=== PATIENT | female | born 1940 | race Caucasian/White ===

== ENCOUNTER 2016-08-01 03:00 | Inpatient (IN) | payer OTHER, MEDICARE ==
[~2016-08-01] VITALS: Ht 162.6 cm; Wt 93.0 kg
[2016-08-01] MEDS ORDERED: LEVOTHYROXINE25 MCG PO (06:58)
[2016-08-01] MEDS ORDERED: LISINOPRIL-HCT1 EACH PO (06:59)
[2016-08-01] MEDS ORDERED: VITAMIN B122500 MC2 PO (07:00)
[2016-08-01] MEDS ORDERED: VITAMIN D31000 UNI1 PO (07:01)
[2016-08-01] MEDS ORDERED: FERROUS SULFAT325 M3 PO (07:02)
[2016-08-01] MEDS ORDERED: TRAMADOL HCL50 M1 PO (07:03)
--- NOTE | 2016-08-01 09:37 | Operative Report ---
Operative/Inv Procedure Report Surgery Date: 08/01/16 Name of Procedure: Left total knee arthroplasty Pre-Operative Diagnosis: Osteoarthritis primarily left knee Post-Operative Diagnosis: Osteoarthritis left knee, primarY Estimated Blood Loss: less than 50ml Surgeon/Design Sales Consultant: TANESHA MEDINA,FABIANO Wilkins Anesthesia: block (SPINAL) IV Fluids: See anesthesia record Implants: Striker triathlon posterior stabilize knee size 5 femur, size 5 tibia, 13 mm polyethylene insert, 29 patella Drains: None Specimens: Bone to pathology Tourniquet: 53 minutes Complications: None Condition: Stable Operative Indication: Patient is a 76-year-old female who was failed conservative treatment for her primary osteoarthritis of the left knee. She wished to proceed with a total knee arthroplasty. The risks and benefits the procedure were explained the patient detail the office. Skilled set of hands was necessary provided by physician middle [employer] assistant principal Fausto Wilkins weighted with retraction positioning assemblY of components throughout the case. Operative/Procedure Note Note: Once informed consent was obtained and the correct limb was identified the patient was brought to operating room placed on table supine position. After administration of spinal anesthesia patient placed in supine position and a thigh tourniquet was placed. The left lower extremity is prepped and draped in usual sterile fashion. To begin the procedure standard midline incision was made for total knee arthroscopy. Sharp dissection was carried down through the skin and subcutaneous tissue and fat. A medial parapatellar arthrotomy was performed and the patella was everted. Fat pad is removed from the patellar tendon. Patellar thickness was measured and a planned resection of 9 mm was taken off the patella. Patella was sized to be a size 29 symmetric patella and the jig for the 29 patella was placed onto the knee And the lug holes were drilled. The patella was retracted laterally and the knee was placed in flexion. Z retractors were placed to protect the medial and lateral collateral ligaments and the intramedullary canal of the the femur was opened with the step drill. The distal femoral cutting guide was placed into the intramedullary canal set for a 6 valgus cut and 10 mm resection. The distal femur was cut without any, patient. The femoral sizing guide was placed onto the distal femur and the femur sized to be size 5 femur. A size 5 4-in-1 cutting block was placed and distal femur and anterior posterior and chamfer cuts were made without complication. Next the size 5 femoral template for the box cut was placed and pinned in place and the box cut was made for posterior stabilized knee. At this point the menisci removed medially and laterally sharply with a # 10 blade. Curved osteotome was used to remove any posterior osteophytes. At this point attention was then turned to the tibia. The step drill was used to open each medullary canal of the tibia. The tibial cutting guide was placed and the intramedullary canal. A plan resection of 4 mm of bone off of the medial side of the tibia was performed and the bone was passed off as specimen. Tibia was sized to be a size 5 tibia. Trial reduction was done with a size 5 tibia size 5 femur a 29 patellar button and a 9 mm polyethylene insert. There was laxity with varus and valgus stress and we jumped up to a size 13 mm polyethylene insert. With the 13 mm polyethylene insert and the knee had full extension and 110 of flexion. It was stable to varus and valgus stress testing at 0 and 60. The patellar tracked very nicely. The knee was taken through a range of motion and tibial component rotation was marked. Once removed and the tibia tibial tray was pinned in place. Keel cut was made. All entrance removed at this point the knee was pulse lavaged. The knee was prepared for cementing. Cement was mixed on the back table and the components were cemented in order with the tibia component cemented first followed by the femoral component and then follow 5 the patellar button. All excess cement was removed curettes. A 13 mm trial insert was placed in the knee was placed in extension while cement hardened. Once the cement hardened the knee was again taken through a range of motion found be stable. A 13 mm polyethylene insert was opened and locked into the tibial tray without, patient. The tourniquet was released and any bleeding was stopped with Bovie.. The arthrotomy is closed #1 Vicryl interrupted sutures. The subcutaneous tissues closed #1 Vicryl and 2-0 Vicryl interrupted sutures. Skin was closed guzman and sterile dressings applied and the patient was awakened taken recovery in stable condition. This concludes an operative report on Chelsie Jimenez
--- NOTE | 2016-08-01 11:30 | NUR ---
1130: PT ADMITTED FROM PACU S/P LT TKR, PT AXO, DENIES PAIN, LLE DSG CDI, PT ON RA, JEAN-BAPTISTE CATH PATENT DRAINING YELLOW URINE, PT ORIENTED TO ROOM, CALL LIGHT AND PLAN OF CARE
[2016-08-01 12:00] VITALS: BP 118/70
--- NOTE | 2016-08-01 12:32 | PN- Orthopedic ---
Subjective Subjective: The patient was seen this afternoon postoperatively. She denies any current pain and reports that her lower extremity still filled all numb from anesthesia. Patient with complaints of current time and denies any chest pain or difficulty breathing. Objective Vital Signs and I&Os Afebrile with stable vital signs Physical Exam: Gen.: Alert and obvious distress Skin: Warm and dry Cardiac: S1-S2 regular Pulmonary: Bilateral breath sounds equal with good exchange Extremities: Bilateral lower extremities are warm without calf tenderness or significant edema. Gross motor and sensory are intact. Left lower extremity surgical dressing is clean, dry, and intact without signs of infection. There is an On-Q pain pump [address] Assessment/Plan Assessment/Plan Assessment: 76-year-old female status post left total knee arthroplasty. Postoperatively the patient is progressing as expected and her pain is under adequate control. Plan: Out of bed namely with physical therapy patient is weightbearing as tolerated Continue current pain regiment Strict I's and O's Keep Ramirez catheter in continue IV fluids until the morning First dose of Coumadin tonight Follow-up morning labs GI and DVT prophylaxis Advance diet as tolerated Resume all medications 2 doses of prophylactic postoperative antibiotics Core Measures/Miscellaneous Ramirez Catheter Date In: 08/01/16 Still Needed? Yes Venous Thromboembolism VTE Risk Factors: Age > 40, Surgery VTE Contraindications: No Contraindications VTE Prophylaxis Ordered Inpt: Mech & Pharm VTE Diagnosis: No Beta Love Is Beta Love a Home Med? No Antibiotics Is Patient on Antibiotics? Yes If Yes: prophylaxis
[2016-08-01 14:39] VITALS: BP 136/72
[2016-08-01 21:59] VITALS: BP 130/70
[2016-08-02 07:03] VITALS: BP 136/72
--- NOTE | 2016-08-02 07:15 | PN- Orthopedic ---
Subjective Subjective: No acute events overnight. Patient admits to pain at the operative site today. She is not tolerating narcotics well due to nausea, but Zofran helps. She is tolerating regular diet. Ramirez catheter remains in place. She was able to ambulate with PT yesterday and is looking forward to her PT session today. Otherwise denies headache, dizziness, chest pain, shortness of breath. Objective Vital Signs and I&Os Vital Signs Date Time Temp Pulse Resp B/P Pulse O2 O2 Flow FiO2 Ox Delivery Rate 08/02 0703 98.3 82 18 136/72 92 Room Air 08/01 2159 98.0 88 20 130/70 92 Room Air 08/01 1447 89 136/72 08/01 1439 97.5 89 20 136/72 93 08/01 1200 96.0 74 18 118/70 92 Room Air Intake & Output 08/02 0800 08/02 0000 08/01 1600 08/01 0800 08/01 0000 07/31 1600 Intake Total 600 1090 625 Output Total 850 1450 600 Balance -250 -360 25 Intake, IV 600 850 225 Intake, Oral 240 400 Output, Urine 850 1450 600 Patient 205 lb Weight Physical Exam: Gen.: Patient is awake and alert. No acute distress. Cardiac: Regular rate and rhythm Pulmonary: Lungs are clear to auscultation bilaterally. Dry cough is elicited with deep inspiration. Abdomen: Soft, nondistended, nontender. Bowel sounds were heard. Extremities: The left lower extremity dressing is clean, dry, and intact. It was a bit tight at the superior aspects, so was loosened. Foot is warm. Patient is able to move her toes. Strength of plantar flexion is 4 out of 5, but strength of dorsiflexion is 2 out of 5. Dorsiflexion seems to be limited by pain only. Lower extremity sensation is intact. Calf tenderness as expected on the left side, but there is no Tenderness on the right side. Assessment/Plan Assessment/Plan Patient is a 76-year-old female with a past medical history significant for hypertension and hypothyroidism, who is now postoperative day #1 status post left total knee arthroplasty. Plan: -Continue PT for mobilization. Weight-bear as tolerated. -Okay to increase tramadol dose to 100 mg if needed for better pain control. -Increase Colace 2 twice a day [id number]. -We will provide an incentive spirometer. This was discussed with the patient. -Coumadin for DVT prophylaxis. Titrate to goal INR of 2-3. -DC Ramirez this morning. Hep-Lock IV fluids. Continue regular diet. -Plan for dressing change tomorrow. On-Q pain catheter will be removed at that time. -Anticipate discharge plan to be home PT on postop day #2 or 3. -Patient was also seen by Dr. Ayala this morning. Core Measures/Miscellaneous Ramirez Catheter Date In: 08/01/16 Still Needed? No Venous Thromboembolism VTE Risk Factors: Age > 40, Surgery VTE Contraindications: No Contraindications VTE Prophylaxis Ordered Inpt: Mech & Pharm VTE Diagnosis: No Beta Love Is Beta Love a Home Med? No Antibiotics Is Patient on Antibiotics? No
[2016-08-02 08:07] LABS: ABSOLUTE BASOPHIL COUNT 0 /CUMM (0.0-0.2); ABSOLUTE EOSINOPHIL COUNT 0 /CUMM (0.0-0.7); ABSOLUTE GRANULOCYTE CT 14.6 /CUMM (1.4-6.5); ABSOLUTE LYMPH COUNT 1.2 /CUMM (1.2-3.4); ABSOLUTE MONOCYTE COUNT 1.2 /CUMM (0.10-0.60); BASOPHIL % 0 % (0.0-2.0); EOSINOPHIL % 0.1 % (0-5); HEMATOCRIT 34.4 % (37-47); MEAN CORPUSCULAR HGB 28.7 PG (27.0-31.0); MEAN CORPUSCULAR HGB CONC 34.1 G/DL (33.0-37.0); MEAN PLATELET VOLUME 10.3 FL (7.4-10.4); PLATELET COUNT 216 /CUMM (130-400); RBC DISTRIBUTION WIDTH 15.1 % (11.5-14.5); WHITE BLOOD CELL COUNT 17.1 /CUMM (4.8-10.8)
[2016-08-02 08:16] LABS: PT 11.6 SEC (9.4-12.5)
[2016-08-02 09:52] LABS: GRANULOCYTE % 85.3 % (42.2-75.2)
--- NOTE | 2016-08-02 12:30 | NUR ---
PT IN CHAIR C/O PAIN, PT REFUSE DURAKOLD, PT STATES " IT DOESN'T WORK " PT IN CHAIR WITH FEET RESTING ON FLOOR. PT STATES SHE IS UNABLE TO TOLERATE LEGS ELEVATED IN CHAIR DUE TO PAIN. PT GIVEN DILAUDID PER REQUEST, PT REFUSE TO TAKE MORPHINE FOR PAIN, SEE MAR
[2016-08-02 15:54] VITALS: BP 120/70
[2016-08-02 18:23] VITALS: BP 122/80
[2016-08-02 22:48] VITALS: BP 118/60
[2016-08-03 07:30] VITALS: BP 130/80
[2016-08-03 07:57] LABS: ABSOLUTE BASOPHIL COUNT 0.1 /CUMM (0.0-0.2); ABSOLUTE EOSINOPHIL COUNT 0.1 /CUMM (0.0-0.7); ABSOLUTE GRANULOCYTE CT 11.7 /CUMM (1.4-6.5); ABSOLUTE LYMPH COUNT 1.6 /CUMM (1.2-3.4); ABSOLUTE MONOCYTE COUNT 1.4 /CUMM (0.10-0.60); BASOPHIL % 0.4 % (0.0-2.0); EOSINOPHIL % 0.5 % (0-5); GRANULOCYTE % 78.8 % (42.2-75.2); HEMATOCRIT 37.6 % (37-47); MEAN CORPUSCULAR HGB 28.8 PG (27.0-31.0); MEAN CORPUSCULAR VOLUME 84.8 FL (81.0-99.0); MEAN PLATELET VOLUME 10.5 FL (7.4-10.4); PLATELET COUNT 228 /CUMM (130-400); RBC DISTRIBUTION WIDTH 15.2 % (11.5-14.5); RED BLOOD CELL CT 4.43 /CUMM (4.20-5.40); WHITE BLOOD CELL COUNT 14.9 /CUMM (4.8-10.8)
[2016-08-03 08:23] LABS: PT 12.8 SEC (9.4-12.5)
--- NOTE | 2016-08-03 08:38 | PN- Orthopedic ---
See Addendum Subjective Subjective: pod#2 s/p left tka poor pain control 8/[address] susannah denies cp, sob, no n+v with diet preop u/a-+uti, no urinary sx's at this time Objective Vital Signs and I&Os Vital Signs Date Time Temp Pulse Resp B/P Pulse O2 O2 Flow FiO2 Ox Delivery Rate 08/03 0730 98.1 86 18 130/80 90 Room Air 08/02 2248 97.9 86 19 118/60 93 Room Air 08/02 1823 97.8 89 19 122/80 92 Room Air 08/02 1700 Room Air Room Air 08/02 1554 97.3 86 20 120/70 95 08/02 1408 Room Air Room Air Intake & Output 08/03 1600 08/03 0800 08/03 0000 08/02 1600 08/02 0700 08/02 0000 Intake Total 500 354 268 3512 Output Total 300 503 675 5605 Balance -300 500 325 -250 -360 Intake, IV 75 600 850 Intake, Oral 500 600 240 Output, Urine 300 254 493 3666 Physical Exam: cv: rrr lungs: clear abd: +bs, soft ext: drsg changed wound c/d'i no calf tenderness bilat Assessment/Plan Assessment/Plan tka stable +uti poor pain control plan start iv cipro f/u urine sensitivities f/ am labs titrate pain meds coumadin for dvt prophylaxis will d/w attending Core Measures/Miscellaneous Ramirez Catheter Date In: 08/01/16 Venous Thromboembolism VTE Risk Factors: Age > 40, Surgery VTE Contraindications: No Contraindications VTE Prophylaxis Ordered Inpt: Mech & Pharm VTE Diagnosis: No Beta Love Is Beta Love a Home Med? No Antibiotics Is Patient on Antibiotics? No
--- NOTE | 2016-08-03 09:49 | RADIOLOGY REPORT ---
EXAMINATION: XR KNEE, LEFT CLINICAL INFORMATION: Status post left TKA COMPARISON: 06/04/2013 TECHNIQUE: 2 views of the left knee FINDINGS: There is a total left knee arthroplasty. The distal femoral component articulates appropriately with the tibial plateau and patellar components. No periprosthetic lucency or fracture. Postoperative soft tissue gas noted. Anterior skin guzman are present. Diffuse soft tissue swelling. IMPRESSION: Total left knee arthroplasty in typical positioning and alignment.
--- NOTE | 2016-08-03 14:35 | ULTRASOUND REPORT ---
EXAMINATION: US DUPLEX LOWER EXTREMITY, LEFT CLINICAL INFORMATION: Postoperative edema and swelling COMPARISON: None. TECHNIQUE: Color-flow triplex imaging with spectral analysis and compression Doppler were performed on the left lower extremity. FINDINGS: Respiratory variation, normal compression and augmented flow are noted throughout the lower extremity. The visualized common femoral vein, superficial femoral vein, profunda femoral vein, popliteal vein and mid calf peroneal and posterior tibial venous segments show no evidence of deep venous thrombosis. There is no Corral's cyst. IMPRESSION: Normal triplex scan without evidence of deep venous thrombosis involving the left lower extremity.
[2016-08-03 14:46] VITALS: BP 108/76
--- NOTE | 2016-08-03 16:11 | Patient Discharge Instructions ---
Discharge Instructions General Discharge Information You were seen/treated for: left knee primary osteoarthritis You had these procedures: left total knee arthroplasty Watch for these problems: temp>101.5, increased wound drainage/redness, increased pain Call Surgeon to remove: [place] No bath, but you may shower: Yes Other wound care: daily dry drsg to left knee Diet Continue normal diet: Yes Recommended Diet: Regular Activity Activity Limited to: Weight bear as tolerated Other activity limits: when sitting in chair, elevate left leg with ice to left knee as needed with increased pain and swelling. No pillows directly underneath knee. Acute Coronary Syndrome Inclusion Criteria At DC or during hospital stay patient has or had the following: ACS DIAGNOSIS No Discharge Core Measures Meds if any: Prescribed or Continued at Discharge Meds if any: NOT Prescribed or Continued at Discharge Congestive Heart Failure Inclusion Criteria At DC or during hospital stay patient has or had the following: CHF DIAGNOSIS No Discharge Core Measures Meds if any: Prescribed or Continued at Discharge Meds if any: NOT Prescribed or Continued at Discharge Cerebrovascular accident Inclusion Criteria At DC or during hospital stay patient has or had the following: CVA/TIA Diagnosis No Discharge Core Measures Meds if any: Prescribed or Continued at Discharge Meds if any: NOT Prescribed or Continued at Discharge Venous thromboembolism Inclusion Criteria VTE Diagnosis No VTE Type NONE VTE Confirmed by (Test) NONE Discharge Core Measures - Per Current guidelines, there needs to be overlap - treatment for the first 5 days of Warfarin therapy. - If discharged on Warfarin prior to 5 days of - overlap therapy, the patient will need to be - assessed for post discharge needs including - *Post discharge parental anticoagulation - *Warfarin and/or parental anticoagulation education - *Follow up date to check INR post discharge At least 5 days overlap therapy as Inpatient No Meds if any: Prescribed or Continued at Discharge Warfarin Yes Overlap Therapy No Note: Overlap Therapy is Warfarin and Anticoagulant Meds if any: NOT Prescribed or Continued at Discharge No Overlap Therapy d/t Warfarin therapy started
[2016-08-03] MEDS ORDERED: SENNA PLUS TAB1 EACH PO (16:14)
[2016-08-03] MEDS ORDERED: MIRALAX119 GM PO (16:14)
[2016-08-03] MEDS ORDERED: DOCUSATE SODIU100 M3 PO (16:15)
[2016-08-03] MEDS ORDERED: HYDROMORPHONE HC2 M1 PO (16:16)
[2016-08-03] MEDS ORDERED: COUMADIN5 M2 PO (16:17)
[2016-08-03] MEDS ORDERED: CIPRO500 M1 PO (16:18)
--- NOTE | 2016-08-03 16:39 | Discharge Summary ---
Visit Information Visit Dates Admission Date: 08/01/16 Discharge Date: 08/04/16 Hospital Course Course Attending Physician: TANESHA MEDINA,FABIANO Sanders Primary Care Physician: MONET ALLEN MD Hospital Course: Ms. Salmeron is 76-year-old female was taken to the operating room on 08/01/2016 for primary osteoarthritis of the left knee and underwent left total knee arthroplasty. She tolerated the procedure well and she was transferred to the floor she was out of bed postop day 1 with physical therapy. She was sitting upright in a standard chair for an extended period and after this sitting complained of increased pain to the left knee and calf. The following morning during her dressing change she stated this and complained of increased pain overnight. As a result for safety. Duplex venous ultrasound of the left lower extremity was obtained and the results were negative for deep vein thrombosis. She continued out of bed with physical therapy and her pain meds were titrated. She was also placed on Coumadin for DVT prophylaxis and INRs were checked daily. Also at the time of the placement of her Ramirez catheter for surgery the cultures of the specimen grew out Pseudomonas and she was placed on ciprofloxacin intravenously. She will continue this course of treatment for this urinary tract infection for a total of 3 days. Events of hospital stay are otherwise unremarkable she continued to physical therapy however required assistance warranting nursing home facility placement. Complications: None Allergies: Coded Allergies: Penicillins (UNKNOWN 07/31/16) amoxicillin (UNKNOWN 07/31/16) cephalexin (UNKNOWN 07/31/16) Significant Procedures: Left total knee arthroplasty Disposition Summary Disposition Principal Diagnosis: Primary osteoarthritis left knee Additional Diagnosis: Urinary tract infection Discharge Disposition: SNF Discharge Instructions General Discharge Information Code Status: Full Code Patient's Diet: Regular diet Patient's Activity: May be weightbearing as tolerated left lower extremity. When sedentary, ice and elevation to left lower extremity for comfort as needed Follow-Up Instructions/Appts: Draw twice weekly INRs and titrate Coumadin dose to maintain an INR between 2 and 3. Send results to Dr. Ayala evaluate orthopedics for Coumadin doses. Dry dressing to left knee daily Increased pain/wound drainage should be reported to Dr. Ayala at [facility]. Medications at Discharge Discharge Medications: Continue taking these medications: Levothyroxine Sodium (Levothyroxine Sodium) 25 MCG TABLET 1 Tablet ORAL DAILY Comments: PT TAKES 0.15MG DAILY Lisinopril/Hydrochlorothiazide (Lisinopril-Hctz 20-12.5 MG Tab) 20 MG-12.5 MG TABLET 1 Tablet ORAL DAILY Cyanocobalamin (Vitamin B-12) (Vitamin B12) 2,500 MCG TAB.CHEW 1 Tablet ORAL DAILY Comments: PT TAKES 1000MCG DAILY Cholecalciferol (Vitamin D3) (Vitamin D3) 1,000 UNIT CAPSULE 1 Tablet ORAL DAILY Ferrous Sulfate (Ferrous Sulfate) 325 MG (65 MG IRON) TABLET 1 Tablet ORAL DAILY Tramadol HCl (Tramadol HCl) 50 MG TABLET 1 Tablet ORAL DAILY as needed for PAIN Comments: PT HASN'T TAKEN FOR 1 WEEK Start taking the following new medications: Hydromorphone HCl (Hydromorphone HCl) 2 MG TABLET 1 Tablet ORAL EVERY 4 HOURS NEEDED as needed for PAIN SCALE 1-3 (MILD) Qty = 30 No Refills Docusate Sodium (Docusate Sodium) 100 MG CAPSULE 1 Tablet ORAL TWICE DAILY Qty = 30 No Refills Polyethylene Glycol 3350 (Miralax) 17 GRAM/DOSE POWDER 1 Packet ORAL DAILY NEEDED as needed for NO BM IN TWO DAYS Qty = 30 No Refills Sennosides/Docusate Sodium (Senna Plus Tablet) 8.6 MG-50 MG TABLET 2 Tablet ORAL AT BEDTIME NEEDED as needed for NO BM IN TWO DAYS Qty = 30 No Refills Warfarin Sodium (Coumadin) 5 MG TABLET 1 Tablet ORAL DAILY Qty = 30 No Refills Ciprofloxacin HCl (Cipro) 500 MG TABLET 1 Tablet ORAL TWICE DAILY Qty = 4 No Refills Copies To: ALEJANDRO MEDINA,MONET Daniel; TANESHA MEDINA,FABIANO Sanders Attending MD Review Statement Documenting Attending: FABIANO AYALA MD
[2016-08-03 22:12] VITALS: BP 112/70
--- NOTE | 2016-08-03 22:50 | NUR ---
O2 SAT 88 ON RA, O2 INITIATED AT 2L/MIN NC, SAT 92%. RESPIRATORY CALLED AND DR. OVALLE MADE AWARE. PT ASYMPTOMATIC
[2016-08-04 06:16] VITALS: BP 100/60
[2016-08-04 08:14] LABS: PT 15.7 SEC (9.4-12.5)
--- NOTE | 2016-08-04 08:22 | NUR ---
08:15- PT HAD TAKEN OFF O2 2L NC. O2 SATURATION 92% ON RA. PER SURG SAGE GRUBBS, KEEP O2 SAT ABOVE 90%, KEEP PT ON RA. INCENTIVE SPIROMETER AT BEDSIDE AND PT USING WITH ENCOURAGEMENT AND RETURN DEMONSTRATION.
--- NOTE | 2016-08-04 10:02 | PN- Orthopedic ---
Subjective Subjective: POD #3 s/p left TKR. Resting comfortably in bed. No complaints offered. Denies CP/SOB, N/V, F/C. Yet to wean off oxygen. Ambulating with PT. Voiding spontaneously. Objective Vital Signs and I&Os Vital Signs Date Time Temp Pulse Resp B/P Pulse O2 O2 Flow FiO2 Ox Delivery Rate 08/04 06 97.6 87 20 100/60 92 Nasal 1.5L Cannula 08/03 2230 92 Nasal 2.0L Cannula 08/03 2212 98.1 89 20 112/70 90 Room Air 08/03 1446 97.6 94 18 108/76 92 Room Air 08/03 1012 124/74 Intake & Output 08/04 1600 08/04 0808/04 0000 08/03 1600 08/03 0000 Intake Total 240 1500 500 Output Total 300 250 300 Balance -60 1250 -300 500 Intake, Oral 240 1500 500 Output, Urine 300 250 300 Physical Exam: Gen: AAOx3 in NAD Cor: S1+S2+ Lungs: CTA mary Abd: soft, NT, ND, +BS x4 Ext: no edema or calf tenderness to mary lower extremities. Left knee dressing removed and replaced. Incision C/D/I. No surrounding erythema or drainage. Mild amount of surrounding ecchymosis noted. Current Medications: Current Medications Sig/Cristiane Start time Last Medication Dose Route Stop Time Status Admin Al Hydroxide/Mg 30 ML Q6P PRN 08/01 1145 AC Hydroxide PO Ciprofloxacin 400 MG Q12H 08/03 0830 AC 08/04 Dextrose/Water 200 ML IV 0913 Docusate Sodium 100 MG BID 08/02 1000 AC 08/04 PO 0920 Hydrochlorothiazide 12.5 MG DAILY 08/01 1000 AC 08/04 PO 0920 Hydromorphone HCl 2 MG Q4P PRN 08/01 1145 AC 08/02 PO 1233 Ketorolac 15 MG Q6-PRN PRN 08/03 0830 DC 08/03 Tromethamine IV 1020 Levothyroxine Sodium 0.025 MG 2200 08/01 2200 AC 08/03 PO 2158 Lisinopril 20 MG DAILY 08/01 1000 AC 08/04 PO 0920 Morphine Sulfate 2 MG Q2P PRN 08/01 1145 DC 08/02 IV 1349 Morphine Sulfate 4 MG Q1P PRN 08/01 1145 DC 08/03 IV 0638 Ondansetron HCl 4 MG Q6P PRN 08/01 1145 08/02 IV 1031 Patient Medication 1 ED .STK-MED ONE 08/03 1344 DC Teaching ED 08/03 1345 Polyethylene Glycol 17 GM DAILY NEEDED PRN 08/01 1145 08/04 PO 0919 Senna/Docusate Sodium 2 TAB AT BEDTIME NEED.. 08/01 1145 AC PO Tramadol HCl 100 MG Q4P PRN 08/02 0730 AC 08/03 PO 1327 Tramadol HCl 50 MG Q4-6 PRN PRN 08/01 1145 AC 08/04 PO 0810 Warfarin Sodium 7.5 MG COUMADIN 1700 ONE 08/03 1700 DC 08/03 PO 08/03 1701 1745 Results Last 48 Hours of Labs: Laboratory Tests 08/04 08/03 0748 0718 Chemistry Sodium (137 - 145 mmol/L) 135 L Potassium (3.5 - 5.1 mmol/L) 4.4 Chloride (98 - 107 mmol/L) 95 L Carbon Dioxide (22 - 30 mmol/L) 24 Anion Gap (5 - 16) 16 BUN (7 - 17 mg/dL) 31 H Creatinine (0.5 - 1.0 mg/dL) 1.0 Estimated GFR (>60 ml/min) 54 L BUN/Creatinine Ratio (7 - 25 %) 31.0 H Coagulation PT (9.4 - 12.5 SEC) 15.7 H 12.8 H INR (0.90 - 1.19) 1.50 H 1.22 H Hematology CBC w Diff NO MAN DIFF REQ WBC (4.8 - 10.8 /CUMM) 14.9 H RBC (4.20 - 5.40 /CUMM) 4.43 Hgb (12.0 - 16.0 G/DL) 12.8 Hct (37 - 47 %) 37.6 MCV (81.0 - 99.0 FL) 84.8 MCH (27.0 - 31.0 PG) 28.8 RDW (11.5 - 14.5 %) 15.2 H Plt Count (130 - 400 /CUMM) 228 MPV (7.4 - 10.4 FL) 10.5 H Gran % (42.2 - 75.2 %) 78.8 H Lymphocytes % (20.5 - 51.1 %) 11.0 L Monocytes % (1.7 - 9.3 %) 9.3 Eosinophils % (0 - 5 %) 0.5 Basophils % (0.0 - 2.0 %) 0.4 Absolute Granulocytes (1.4 - 6.5 /CUMM) 11.7 H Absolute Lymphocytes (1.2 - 3.4 /CUMM) 1.6 Absolute Monocytes (0.10 - 0.60 /CUMM) 1.4 H Absolute Eosinophils (0.0 - 0.7 /CUMM) 0.1 Absolute Basophils (0.0 - 0.2 /CUMM) 0.1 PUBS MCHC (33.0 - 37.0 G/DL) 34.0 Assessment/Plan Assessment/Plan A: 76 year old female POD #3 s/p left TKR; AVSS. Plan: INR 1.50. Continue Coumadin post op for DVT prophylaxis. OOB with PT. D/C to STR today. Needs BM first. Core Measures/Miscellaneous Ramirez Catheter Date In: 08/01/16 Venous Thromboembolism VTE Risk Factors: Age > 40, Surgery VTE Contraindications: No Contraindications VTE Prophylaxis Ordered Inpt: Mech & Pharm VTE Diagnosis: No Beta Love Is Beta Love a Home Med? No Antibiotics Is Patient on Antibiotics? No
[2016-08-04 11:52] VITALS: BP 100/60
[2016-08-04 13:17] VITALS: BP 100/60
== END 2016-08-04 14:38 | DRG 470 ==
LOC: SDA 03:00 → 2NA 03:00
PROVIDERS: Physician Assistant Surgical; ADMIT Orthopaedic Surgery Foot and Ankle Surgery
PROC: 0SRD0J9 Replacement of Left Knee Joint with Synthetic Substitute, Cemented, Open Approach (ICD-10-PCS; principal; 2016-08-01)
DX: M17.12 Unilateral primary osteoarthritis, left knee (principal)
CPT/HCPCS: 2NAP; 36415; 73560-LT; 82436; 87086; 88305; 97001-GP; 97110-GO; 97116-GO; 97161-GP; 97530-GO; C1713; J0131; J0744; J1100; J2405; J2795; J3370; J7040; J7060

== ENCOUNTER 2017-08-14 02:25 | Inpatient (IN) | payer OTHER, MEDICARE ==
[~2017-08-14] VITALS: Ht 160 cm; Wt 96.6 kg
[~2017-08-14 02:25] MED LIST: CIPRO500 M1 PO; COUMADIN5 M2 PO; DOCUSATE SODIU100 M3 PO; FERROUS SULFAT325 M3 PO; HYDROMORPHONE HC2 M1 PO; LEVOTHYROXINE PO; LEVOTHYROXINE25 MCG PO; LISINOPRIL-HCT1 EACH PO; LISINOPRIL5 M1 PO; MIRALAX119 GM PO; SENNA PLUS TAB1 EACH PO; TRAMADOL HCL50 M1 PO; VITAMIN B122500 MC2 PO; VITAMIN D31000 UNI1 PO; ZYRTEC10 M3 PO
--- NOTE | 2017-08-14 09:23 | Operative Report ---
Operative/Inv Procedure Report Surgery Date: 08/14/17 Name of Procedure: Right total knee arthroplasty Pre-Operative Diagnosis: Primary osteoarthritis right knee Post-Operative Diagnosis: Same Estimated Blood Loss: scant Surgeon/Account Installer: Jamie MEDINA,Ventura CAZARES Anesthesia: block (SPINAL) IV Fluids: See anesthesia record Implants: Striker triathlon posterior stabilize knee size 5 femur, size 5 tibial baseplate , 9 mm polyethylene insert 29 patella Drains: None Specimens: Bone to pathology Tourniquet: 47 minutes Complications: None Condition: Stable Operative Indication: Patient's a 77-year-old female severe osteoarthritis of the right knee. She failed conservative treatment was indicated for surgical total knee arthroplasty. Risks and benefits of procedure were discussed with the patient detail in the office and he wished to proceed. A skilled set hands was necessary and provided by physician event marketing assistant Fausto Wilkins weighted with limb positioning and retraction as well as component assembly throughout the case. Operative/Procedure Note Note: Once informed consent was obtained and the correct limb was identified the patient brought to operative room placed on table supine position. After administration of spinal anesthesia patient's had a Ramirez catheter placed and a thigh tourniquet was placed in the right lower chamois. The right leg was prepped and draped usual sterile fashion. To begin the procedure standard midline incision for total knee arthroscopy is made. Sharp dissection was carried down through skin and subcutaneous tissue. A medial parapatellar arthrotomy was performed and the patella was everted. Fat pad is removed from patellar tendon. Patellar thickness was measured be 23 mm a plan resection of 8 mm was performed on the patella. Patella was then sized to be a size 29 symmetric patellar button. The jig for the 29 patella was placed on the patella and the lug holes were drilled. At this point the patella was protected and retracted laterally and the knee was placed in flexion. Z retractors were placed. The lateral and medial meniscus were sharply debrided and removed. The cruciate limits resected. Using a step drill a intramedullary canal of the femur was entered. The intramedullary distal femoral cutting guide was placed with a setting of 5 valgus cut with 10 moment is a bony resection. Distal femoral cut was made without, patient. The femur was then sized to be a size 5 femur. A spot size 5 4-in-1 cutting block was placed on the distal femur and anterior, posterior, chamfer cuts were made without, patient and bone was passed off as specimen. A size 5 proximal cut guide was then placed on the femur and the box cut was made. At this point curved osteotomes were used to remove posterior osteophytes off the posterior femoral condyle. Pickle fork retractors placed posterior to the tibia and tibia was translated anteriorly. Intramedullary canal of the tibia was entered with a step drill. The tibial cutting guide was placed and a planned resection of 2 mm off of the lateral compartment of the knee was performed. The bone was passed off as specimen. The tibial component was sized to be a size 5 tibial baseplate. A trial reduction was done with the size 5 femur size 5 tibial baseplate and a 9 mm polyethylene insert. The knee had full extension and flexion of 120. The knee was stable to varus and valgus stress at 0 and 60. He was taken through a range of motion and the patella tracked nicely. Rotation of tibial component was marked and the components removed. Tibial component was then pinned in place and the keel cut was made. At this point all entrance removed and the knee was pulse lavaged. The cement was mixed on the back table and the components were cemented in order with the tibial component cemented first followed by the femoral component and the patellar button. All excess cement was removed with curettes and the knee was placed in extension with a 9 mm polyethylene trial insert. Once the cement hardened the knee was taken through a range of motion and found to be stable once again a 9 mm polyethylene insert was opened and locked into the tibial tray. The knee was again trialed and taken through range of motion found be stable. Knee was pulse lavaged. Tourniquet was released and any bleeding was stopped with Bovie cautery. The arthrotomy is closed #1 Vicryl interrupted sutures. Subcutaneous tissues were closed with #1 Vicryl and 2-0 Vicryl interrupted sutures. Skin was closed guzman and sterile dressing was applied. Patient awakened taken recovery in stable condition.
--- NOTE | 2017-08-14 10:00 | Admission Core Measures ---
Acute Coronary Syndrome (CM) ACS Core Measures Acute Coronary Syndrome Diagnosis No Congestive Heart Failure (NEW) CHF Core Measures Congestive Heart Failure Diagnosis No Cerebrovascular Accident (NEW) CVA Core Measures CVA/TIA Diagnosis No Venous Thromboembolism VTE Core Walker (View Protocol) VTE Risk Factors Surgery No Mechanical VTE Prophylaxis d/t N/A MechProphylax Ordered No VTE Pharm Prophylaxis d/t NA PharmProphylax ordered Problem List As ranked by this Provider includes Assessment & Plan 1. Unilateral primary osteoarthritis, right knee HOME MEDS Home Med List Cetirizine HCl (Zyrtec) 10 MG TABLET 1 TAB PO DAILY ALLERGIES (Reported) Cholecalciferol (Vitamin D3) (Vitamin D3) 1,000 UNIT CAPSULE 1 TAB PO DAILY SUPP (Reported) Cyanocobalamin (Vitamin B-12) (Vitamin B12) 2,500 MCG TAB.CHEW 1 TAB PO DAILY SUPP (Reported) Ferrous Sulfate 325 MG (65 MG IRON) TABLET 1 TAB PO DAILY SUPP (Reported) [LEVOTHYROXINE] 0.15 MG PO 4XWEEK THROID (Reported) [LEVOTHYROXINE] 1 TAB PO 3X WEEK THYROID (Reported) Lisinopril 5 MG TABLET 1 TAB PO DAILY BLOOD PRESSURE (Reported)
--- NOTE | 2017-08-14 10:03 | Surgical Discharge Summary ---
Visit Information Visit Dates Admission Date: 08/14/17 Discharge Date: 08/17/17 History of Present Illness Chief Complaint: Refer to H&P Medical History Neurological: NONE EENT: NONE Cardiovascular: hypertension Respiratory: asthma Gastrointestinal: NONE Hepatic: NONE Renal: NONE Musculoskeletal: LEFT TKR Psychiatric: NONE Endocrine: hypothyroidism Blood Disorders: NONE Cancer(s): NONE OPERATIONS EXAMINER/Reproductive: NONE History of MRSA: No History of VRE: No History of CDIFF: No Isolation History: Standard Surgical History Pertinent Surgical History: appendectomy, GALL BLADDER DEVIATED SEPTUM Psychosocial History Who Do You Live With? Patient/Self What is Your Primary Language? Kenyan Review of Systems: Refer to H&P Hospital Course Course Attending Physician: Ventura Ayala MD Primary Care Physician: Mendel Moya MD Hospital Course: Patient was admitted to the hospital for an elective right total knee replacement. Procedure was tolerated well and patient was transferred to a general surgical floor. Diet was advanced and tolerated. Physical therapy performed evaluation and treatment. She was started on cipro 500 mg twice daily on 08/16/17 for a likely urinary tract infection (gram negative rods > 100,000, which grew out as klebsiella sensitive to cipro). At time of hospital discharge, vital signs were stable, neurovascular status was intact, and pain was controlled with the use of oral pain medications. Complications: None Allergies: Coded Allergies: Fish Containing Products (unknown 08/02/17) Penicillins (UNKNOWN 07/31/16) alendronate sodium (From FOSAMAX) (UNKNOWN 08/12/17) amoxicillin (UNKNOWN 07/31/16) cephalexin (UNKNOWN 07/31/16) chocolate flavor (unknown 08/02/17) Uncoded Allergies: green plants (unknown 08/02/17) Significant Procedures: Right total knee arthroplasty on 08/14/17 Disposition Summary Disposition Principal Diagnosis: Primary osteoarthritis right knee Urinary tract infection Additional Diagnosis: Right total knee arthroplasty Discharge Disposition: SNF Discharge Instructions General Discharge Information Code Status: Full Code Patient's Diet: Regular Patient's Activity: WBAT with RW as needed Follow-Up Instructions/Appts: F/u with Dr. Ayala in 6 weeks for postop check staple removal around post-op day#14 complete one week of cipro for klebsiella uti Medications at Discharge Discharge Medications: Continue taking these medications: Cyanocobalamin (Vitamin B-12) (Vitamin B12) 2,500 MCG TAB.CHEW 1 Tablet ORAL DAILY Comments: NOT GIVEN IN HOSPITAL Cholecalciferol (Vitamin D3) (Vitamin D3) 1,000 UNIT CAPSULE 1 Tablet ORAL DAILY Comments: NOT GIVEN IN HOSPITAL Ferrous Sulfate (Ferrous Sulfate) 325 MG (65 MG IRON) TABLET 1 Tablet ORAL DAILY Comments: NOT GIVEN IN HOSPITAL Lisinopril (Lisinopril) 5 MG TABLET 1 Tablet ORAL DAILY Cetirizine HCl (Zyrtec) 10 MG TABLET 1 Tablet ORAL DAILY [LEVOTHYROXINE] 0.15 Milligram ORAL 4XWEEK Comments: PT STATES TAKES 4 TIMES WEEK SATURDAY-SATURDAY [LEVOTHYROXINE] 1 Tablet ORAL 3X WEEK Comments: PT STATES TAKES .075 MCG ON , SATURDAY,SATURDAY Start taking the following new medications: Apixaban (Eliquis) 2.5 MG TABLET 2.5 Milligram ORAL TWICE DAILY Qty = 60 No Refills Ciprofloxacin HCl (Cipro) 500 MG TABLET 500 Milligram ORAL TWICE DAILY Qty = 14 No Refills Docusate Sodium (Docusate Sodium) 100 MG CAPSULE 100 Milligram ORAL TWICE DAILY as needed for CONSTIPATION Days = 14 No Refills Instructions: hold for loose stools Hydromorphone HCl (Hydromorphone HCl) 2 MG TABLET 1-2 Tablet ORAL EVERY 4-6 HOURS NEEDED as needed for pain control Days = 14 No Refills Polyethylene Glycol 3350 (Miralax) 17 GRAM/DOSE POWDER 17 Gram ORAL DAILY NEEDED as needed for CONSTIPATION Days = 7 No Refills Sennosides/Docusate Sodium (Senna Plus Tablet) 8.6 MG-50 MG TABLET 2 Tablet ORAL AT BEDTIME NEEDED as needed for NO BM IN TWO DAYS Days = 7 No Refills Copies To: Nita MEDINA,Mendel Greene
--- NOTE | 2017-08-14 10:07 | Patient Discharge Instructions ---
Discharge Instructions General Discharge Information You were seen/treated for: Primary osteoarthritis of right knee Urinary tract infection You had these procedures: Right total knee replacement Watch for these problems: Increasing pain despite the use of pain medication Increasing redness, warmth or swelling Drainage of any type from incision Inability to bear weight on operative leg Persistent nausea and vomiting Fever greater than 101.5 degrees Call Surgeon to remove: Pham Do not soak the wound: Yes No bath, but you may shower: Yes Other wound care: dry guaze dressing change daily Diet Continue normal diet: Yes Recommended Diet: Regular Activity Full Activity/No Limits: No Activity Self Limited: Yes Activity Limited to: Weight bear as tolerated Other activity limits: Use rolling walker as needed Acute Coronary Syndrome Inclusion Criteria At DC or during hospital stay patient has or had the following: ACS DIAGNOSIS No Discharge Core Measures Meds if any: Prescribed or Continued at Discharge Meds if any: NOT Prescribed or Continued at Discharge Congestive Heart Failure Inclusion Criteria At DC or during hospital stay patient has or had the following: CHF DIAGNOSIS No Discharge Core Measures Meds if any: Prescribed or Continued at Discharge Meds if any: NOT Prescribed or Continued at Discharge Cerebrovascular accident Inclusion Criteria At DC or during hospital stay patient has or had the following: CVA/TIA Diagnosis No Discharge Core Measures Meds if any: Prescribed or Continued at Discharge Meds if any: NOT Prescribed or Continued at Discharge Venous thromboembolism Inclusion Criteria VTE Diagnosis No VTE Type NONE VTE Confirmed by (Test) NONE Discharge Core Measures - Per Current guidelines, there needs to be overlap - treatment for the first 5 days of Warfarin therapy. - If discharged on Warfarin prior to 5 days of - overlap therapy, the patient will need to be - assessed for post discharge needs including - *Post discharge parental anticoagulation - *Warfarin and/or parental anticoagulation education - *Follow up date to check INR post discharge At least 5 days overlap therapy as Inpatient No Meds if any: Prescribed or Continued at Discharge Note: Overlap Therapy is Warfarin and Anticoagulant Meds if any: NOT Prescribed or Continued at Discharge
[2017-08-14 11:15] VITALS: BP 130/70
[2017-08-14 14:54] VITALS: BP 122/72
--- NOTE | 2017-08-14 16:29 | PN- Student ---
Maciej Barrientos 08/14/17 2479: Subjective Subjective: Chelsie is a 77yo F with a past medical hx significant for HTN, hypothyroidism and asthma who is presents post op day 0 s/p right total arthroplasy r/t OA. Directly after the procedure, pt reported nausea and had recurrent emesis. Pt was place on phenergan at 2:00pm and has felt 'much better' since. Denies any current nausea, vommitting, flatus or BM. Paz catheter in place 250ml clear straw colored urine noted in bag. PT tolerating regular diet. PT denies: H/A, vision changes, SOB, chest pain, N/V/D, flatus, BM or syncope. Objective Objective: GENERAL: Pt sitting upright in bed in NAD. A+Ox4, pleasant affect. RESP: Good respiratory effort, CTAB. CARDIO: RRR, no MRG, S1/S2 audible. ABD: Soft, NTND, tympanic upon percussion. No bowel sounds audbile. MUSC: Right knee in DIVINA wrap bandage with ice pack. Dressing is clean dry and intact. Pt able to move toes and ankles without difficulty. Pedal pulses +2 bilaterally. NEURO: Sensation intact throughout- pt reports lateral border of right foot is ' a little more numb' than the left foot. Results Results: Microbiology 08/14 0810 URINE OR: Urine Culture - RECD Assessment/Plan Assessment: Chelsie is a 77yo F POD-0 s/p R total arthroscopy r/t OA. She is recovering well from the procedure. Her nausea and vomitting has subsided after phenergan was Rx. She has tolerated regular diet well and states she is feeling 'much better.' Pt has no questions or complaints at this time. Plan: D/C paz catheter. Continue outpt meds and pain medications as ordered. Continue regular diet. D/C later today if pt continues to improve. Follow up with Dr. Ayala outpatient. Мария Young 08/14/17 6940: Assessment/Plan Plan: Patient seen and examined by myself. S: Had some post operative nausea and vomitting, resolved with phenergan. Has since tolerated po. Pain controlled presently. Denies chest pain, shortness of breath and difficulty breathing. Has yet to amblate. O: General: Alert and oriented x3, no acute distress Cardiac: RRR, s1s2 Pulm: C T A bilaterally ABD: Soft, non-tender, non-distended : Paz catheter in place, clear pale yellow urine Extremities: MOves all extremities, distal sensation grossly intact. Skin warm and well perfused. DP pulses palpable bilaterlaly. Bilateral calves soft and non-tender. Surgical site; RIght knee. Dressing dry and intact. On Q in place. No leak. A/P: This is a 77 year old female, POD 0, S/p R TKR -Eliquis 2.5 mg bid for dvt ppx to begin tomorrow am -Vancomycin for 24 hours as abx ppx -DC paz and iv fluids in am -OOB, WBAT -Plan for dc to str on POD 3 Will d/w Dr. Ayala
[2017-08-14 18:22] VITALS: BP 120/62
[2017-08-14 22:15] VITALS: BP 104/60
[2017-08-15 02:02] VITALS: BP 120/72
[2017-08-15 06:58] VITALS: BP 110/56
--- NOTE | 2017-08-15 07:13 | PN- Student ---
See Addendum Maciej Barrientos 08/15/17 0710: Subjective Subjective: Chelsei is a 77yo C female post op day 1 s/p right total knee arthroscopy r/t OA. Patient states she has minimal (2/10) right knee pain which is described as 'burning behind my knee'- pt states this pain was present prior to the procedure. Yesterday, pt stated the lateral aspect of her right foot was 'more numb' than the left foot. This has since resolved. Patient is tolerating regular diet and admits to + flatus, but has not passed BM since procedure. Paz catheter in place. No other complaints at this time. PT denies: H/A, vision changes, SOB, chest pain, abd pain, N/V/D, paresthesias or syncope. Objective Objective: GENERAL: Pt is sitting upright in bed comfortably, in NAD. A+Ox4, very pleasant and optomistic affect. Pt is on 2 L O2 via nasal cannula. Paz catheter in place, 200ml of clear straw colored urine in bag. RESP: Poor respiratory effort despite being asked several times to take deeper inhalations. Respirations are shallow and have been recorded at 20 breaths/min. O2 sat 90%- PMHX of asthma. CARDIO: RRR , no MRG, S1/S2 audible. ABD: Soft, NTND, loud normoactive bowel sounds audible in all 4 quadrants. MUSC: Right knee dressing is clean dry and intact, wrapped in DIVINA bandage. Compression device on lower legs bilaterally. Nontender/nonedematous. Pedal pulses intact bilaterally. NEURO: Sensation intact throughout. Results Results: Microbiology 08/14 0810 URINE OR: Urine Culture - RECD Assessment/Plan Assessment: Chelsie is a 77yo C female post op day 1 s/p right total knee arthroscopy r/t OA. PT appears to be recovering well from the procedure but is showing signs of possible asthma exacerbation or PE. Pt has a history of asthma and has shallow respirations on exam, lungs are clear when auscultated. Despite being on 2L O2 via nasal cannula, patient has O2 sat of 90%. Pt on eliquis for DVT prophylaxis. Patient has no questions or concerns at this time. Plan: Order upright CXR. Order spirometry for decreased respiratory effort. Continue Eliquis for DVT prophylaxis. Continue regular diet. Physical therapy consult this am. Мария Young 08/15/17 0746: Assessment/Plan Plan: Agree with student assessment. Patient is without subjective complaint of respiratory difficulty. However, respiratory effort appears poor and o2 saturation is 90 on 2L nasal cannula. Patient has not been using incentive spirometer. -TRC evaluation ordered -Incentive spirometer ordered -Portable cxr ordered Will continue to monitor respiratory status Continue current pain regimen Discontinued IV toradol due to hx of asthma DC paz catheter OOB with pt, wbat Continue eliquis 2.5 bid Dressing change tomorrow On Q out tomorrow Will discuss with DR. Ayala
[2017-08-15 07:25] VITALS: BP 124/72
--- NOTE | 2017-08-15 08:12 | RADIOLOGY REPORT ---
EXAMINATION: XR PORTABLE CHEST CLINICAL INFORMATION: Low oxygen saturation. Status post total joint replacement. COMPARISON: Chest x-ray of 08/21/2005 TECHNIQUE: Portable frontal view of the chest was obtained. FINDINGS: The lungs are mildly hypoexpanded. There is [id number] elevation of the right hemidiaphragm, which appears greater than compared to previous x-ray of 2006. Minimal right basilar linear atelectasis. No focal consolidation, changes of congestion or pleural effusions. The cardiomediastinal silhouette is within normal limits for technique. Regional skeleton is intact. IMPRESSION: Minimal right basilar linear atelectasis. No acute pulmonary process otherwise. [id number] elevation of the right hemidiaphragm.
[2017-08-15 08:45] LABS: ABSOLUTE BASOPHIL COUNT 0 /CUMM (0.0-0.2); ABSOLUTE EOSINOPHIL COUNT 0 /CUMM (0.0-0.7); ABSOLUTE GRANULOCYTE CT 17.4 /CUMM (1.4-6.5); ABSOLUTE LYMPH COUNT 0.9 /CUMM (1.2-3.4); ABSOLUTE MONOCYTE COUNT 1.1 /CUMM (0.10-0.60); BASOPHIL % 0 % (0.0-2.0); EOSINOPHIL % 0 % (0-5); HEMATOCRIT 37.3 % (37-47); MEAN CORPUSCULAR HGB 28.9 PG (27.0-31.0); MEAN CORPUSCULAR HGB CONC 33.7 G/DL (33.0-37.0); MEAN CORPUSCULAR VOLUME 85.8 FL (81.0-99.0); MEAN PLATELET VOLUME 10.7 FL (7.4-10.4); PLATELET COUNT 172 /CUMM (130-400); RBC DISTRIBUTION WIDTH 14.9 % (11.5-14.5); RED BLOOD CELL CT 4.34 /CUMM (4.20-5.40); WHITE BLOOD CELL COUNT 19.3 /CUMM (4.8-10.8)
[2017-08-15 17:21] VITALS: BP 122/60
[2017-08-15 22:24] VITALS: BP 102/60
--- NOTE | 2017-08-16 06:44 | PN- Student ---
See Addendum Maciej Barrientos 08/16/17 0641: Subjective Subjective: Chelsie is a 77yo C female post op day 2 s/p right total knee arthroplasty. Patient states she has 10/10 deep 'squeezing' pain that 'feels like a huge bruise inside' in the lateral aspect of her right upper leg (pointed about 5 inches above her knee). She said this pain came on yesterday and she is unable to move her leg without 'extreme' discomfort. Patient walked with physical therapy x2 yesterday but states it was 'excruciating.' She states this pain radiates behind her knee, but does not travel down the lower leg. Patient has been tolerated regular diet but has not had a BM, although admits to flatus. Ramirez catheter and O2 via nasal cannula d/c yesterdary. Patient denies hematuria or dysuria although urine culture shows >100,000 gram negative rods. Patient denies: H/A, vision changes, SOB, chest pain, abd pain, NVD, paresthesia or syncope. Objective Objective: GENERAL: Patient is sitting upright in bed and appears to be uncomfortable. Face is flushed and she seems anxious compared to previous visits. A+Ox4. RESP: Poor respiratory effort which is consistent with this patients examination. CTAB. CARDIO: RRR, no MRG, S1 and S2 audible. ABD: Soft, NTND. Normoactive bowel sounds audible throughout. MUSC: Right leg is wrapped with DIVINA bandage. Upper leg examined: no deformity/ discoloration/swelling noted. Painful to palpatation (lateral aspect of right upper leg ~ 5inches above knee joint). Patient is unable to raise right leg off of the bed because of increased pain. Patient requested her knee to be supported by a pillow, upon lifting right leg passively, patient appears to be in severe pain. Patient is able to move toes/ankles without difficulty. Patient has compression devices attached to bilateral lower legs. Nontender/nonedematous, pedal pulses intact bilaterally. NEURO: Sensation intact throughout. Results Results: Laboratory Tests 08/15/17 0815: Anion Gap 15, Estimated GFR > 60, BUN/Creatinine Ratio 26.3 H, CBC w Diff NO MAN DIFF REQ, RBC 4.34, MCV 85.8, MCH 28.9, RDW 14.9 H, MPV 10.7 H, Gran % 90.0 H, Lymphocytes % 4.5 L, Monocytes % 5.5, Eosinophils % 0, Basophils % 0, Absolute Granulocytes 17.4 H, Absolute Lymphocytes 0.9 L, Absolute Monocytes 1.1 H, Absolute Eosinophils 0, Absolute Basophils 0, PUBS MCHC 33.7 Microbiology 08/14 0810 URINE OR: Urine Culture - RES GRAM NEGATIVE RODS Assessment/Plan Assessment: Chelsie is a 77yo C female post op day 2 s/p right total knee arthoplasty. Since yesterday, she has developed severe muscle pain in the right upper leg travelling to behind her knee. She has evidence of a new UTI with WBC 19.3 and > 100,000 GNR on urine culture. No other questions or concerns at this time. Plan: Continue regular diet. Continue incentive spirometer for atelectasis. Change dressing on right knee today. Physical therapy consult this am. Continue eliquis for DVT prophylaxis. Increase pain medications. Begin cipro x 3 days for UTI. Follow up with labs and vital signs. Hodan Salguero 08/16/17 0753: Assessment/Plan Plan: AGREE WITH PA-S NOTE she has asymptomatic bacteriuria will recheck u/a and urine cx f/u labs dressing changed str planning in progress, likely for tomorrow will d/w
[2017-08-16 06:57] VITALS: BP 104/58
--- NOTE | 2017-08-16 14:06 | RADIOLOGY REPORT ---
EXAMINATION: XR KNEE, RIGHT CLINICAL INFORMATION: Status post right total knee arthroplasty. COMPARISON: Left knee done on 08/03/2016. TECHNIQUE: Two views of the right knee. FINDINGS: The bony alignment is intact. The tibial, femoral and patellar components appear well aligned. Mild soft tissue swelling is present. Few soft tissue gas is present. No new abnormalities. IMPRESSION: Appropriate alignment of the right total knee arthroplasty without evidence of complications .
[2017-08-16 14:12] VITALS: BP 120/70
[2017-08-16] MEDS ORDERED: MIRALAX119 GM PO (15:01)
[2017-08-16] MEDS ORDERED: SENNA PLUS TAB1 EACH PO (15:01)
[2017-08-16] MEDS ORDERED: DOCUSATE SODIU100 M3 PO (15:01)
[2017-08-16] MEDS ORDERED: ELIQUIS2.5 M1 PO (15:01)
[2017-08-16] MEDS ORDERED: HYDROMORPHONE HC2 M1 PO (15:01)
[2017-08-16] MEDS ORDERED: CIPRO500 M1 PO (15:01)
[2017-08-16 15:58] LABS: ABSOLUTE BASOPHIL COUNT 0.1 /CUMM (0.0-0.2); ABSOLUTE EOSINOPHIL COUNT 0.2 /CUMM (0.0-0.7); ABSOLUTE GRANULOCYTE CT 9.8 /CUMM (1.4-6.5); ABSOLUTE LYMPH COUNT 1.3 /CUMM (1.2-3.4); BASOPHIL % 0.7 % (0.0-2.0); EOSINOPHIL % 1.4 % (0-5); GRANULOCYTE % 79.2 % (42.2-75.2); HEMATOCRIT 38.6 % (37-47); MEAN CORPUSCULAR HGB 28.5 PG (27.0-31.0); MEAN CORPUSCULAR HGB CONC 33.1 G/DL (33.0-37.0); MEAN CORPUSCULAR VOLUME 86.2 FL (81.0-99.0); MEAN PLATELET VOLUME 10.8 FL (7.4-10.4); PLATELET COUNT 198 /CUMM (130-400); RBC DISTRIBUTION WIDTH 15.5 % (11.5-14.5); RED BLOOD CELL CT 4.48 /CUMM (4.20-5.40); WHITE BLOOD CELL COUNT 12.3 /CUMM (4.8-10.8)
[2017-08-16 22:09] VITALS: BP 114/70
[2017-08-17 07:20] VITALS: BP 114/70
--- NOTE | 2017-08-17 08:20 | PN- Student ---
Maciej Barrientos 08/17/17 0820: Subjective Subjective: Chelsie is a 77yo female post op day 3 s/p right total knee arthroplasty. Patient says her pain had decreased substantially since we last spoke yesterday morning. She has been working with physical therapy and has been ambulating around the unit with assistance. Patient is tolerating regular diet and is passing flatus but denies BM. Denies: H/A, vision changes, SOB, chest pain, N/V/D, paresthesias or syncope. Objective Objective: GENERAL: Pt is sitting up comfortably in bed in NAD. A+Ox4, pleasant affect. RESP: Shallow respirations (normal on exam for this pt- CXR shows mild atelectasis). CTAB. CARDIO: RRR, no MRG, S1 and S2 audible. ABD: Soft, nontender, nondistended. Tympanic upon percussion. Loud normoactive bowel sounds audible througout. MUSC: Right knee wrapped with DIVINA bandage, ice pack over dressing. Compression devices on lower extremities bilaterally. Nontender, nonedematous. 5/5 strength and full ROM in ankles/toes. Pedal pulses +2 bilaterally. NEURO: Sensation intact throughout. Results Results: Laboratory Tests 08/16/17 1533: Anion Gap 14, Estimated GFR 54 L, BUN/Creatinine Ratio 22.0, CBC w Diff NO MAN DIFF REQ, RBC 4.48, MCV 86.2, MCH 28.5, RDW 15.5 H, MPV 10.8 H, Gran % 79.2 H , Lymphocytes % 10.7 L, Monocytes % 8.0, Eosinophils % 1.4, Basophils % 0.7, Absolute Granulocytes 9.8 H, Absolute Lymphocytes 1.3, Absolute Monocytes 1.0 H, Absolute Eosinophils 0.2, Absolute Basophils 0.1, PUBS MCHC 33.1 08/16/17 0900: Urine Color YEL, Urine Clarity CLEAR, Urine pH 6.0, Ur Specific [place] 1.020, Urine Protein NEG, Urine Ketones NEG, Urine Nitrite NEG, Urine Bilirubin NEG, Urine Urobilinogen 0.2, Ur Leukocyte Esterase SMALL H, Ur Microscopic SEDIMENT EXAMINED, Urine RBC RARE, Urine WBC 15-25 H, Ur Epithelial Cells MOD H, Urine Bacteria RARE H, Hyaline Casts RARE H, Urine Hemoglobin NEG, Urine Glucose NEG 01/18/18 0815: Anion Gap 15, Estimated GFR > 60, BUN/Creatinine Ratio 26.3 H, CBC w Diff NO MAN DIFF REQ, RBC 4.34, MCV 85.8, MCH 28.9, RDW 14.9 H, MPV 10.7 H, Gran % 90.0 H, Lymphocytes % 4.5 L, Monocytes % 5.5, Eosinophils % 0, Basophils % 0, Absolute Granulocytes 17.4 H, Absolute Lymphocytes 0.9 L, Absolute Monocytes 1.1 H, Absolute Eosinophils 0, Absolute Basophils 0, PUBS MCHC 33.7 Microbiology 08/16 0900 URINE ROUT: Urine Culture - RES Assessment/Plan Assessment: Chelsie is a 77yo F POD3 s/p R total knee arthoplasty. Pt is recovering well from her procedure and is performing weight bearing exercise as tolerated. Pt is scheduled to be discharge to [facility] this afternoon with her son. Pt has evidence of UTI and has been started on cipro 500mg BID. Her WBC is trending downward. Pt has no complaints or questions at this time. Plan: Continue eliquis for DVT prophylaxis. Continue Cipro 500mg BID x 3 days for UTI (Klebsiella). PT consult this am. - Encourage ambulation/weight bearing exercise as tolerated (with assistance) Continue regular diet. Continue docusate and polyethylene glycol - Once pt has + BM, she may be discharged to [facility]. Discharge with PO pain medications and walker. Follow up outpatient with Dr. Ayala. Meka Sin 08/17/17 1119: Objective Results Results: Laboratory Tests 08/16/17 1533: Anion Gap 14, Estimated GFR 54 L, BUN/Creatinine Ratio 22.0, CBC w Diff NO MAN DIFF REQ, RBC 4.48, MCV 86.2, MCH 28.5, RDW 15.5 H, MPV 10.8 H, Gran % 79.2 H , Lymphocytes % 10.7 L, Monocytes % 8.0, Eosinophils % 1.4, Basophils % 0.7, Absolute Granulocytes 9.8 H, Absolute Lymphocytes 1.3, Absolute Monocytes 1.0 H, Absolute Eosinophils 0.2, Absolute Basophils 0.1, PUBS MCHC 33.1 08/16/17 0900: Urine Color YEL, Urine Clarity CLEAR, Urine pH 6.0, Ur Specific [place] 1.020, Urine Protein NEG, Urine Ketones NEG, Urine Nitrite NEG, Urine Bilirubin NEG, Urine Urobilinogen 0.2, Ur Leukocyte Esterase SMALL H, Ur Microscopic SEDIMENT EXAMINED, Urine RBC RARE, Urine WBC 15-25 H, Ur Epithelial Cells MOD H, Urine Bacteria RARE H, Hyaline Casts RARE H, Urine Hemoglobin NEG, Urine Glucose NEG 08/15/17 0815: Anion Gap 15, Estimated GFR > 60, BUN/Creatinine Ratio 26.3 H, CBC w Diff NO MAN DIFF REQ, RBC 4.34, MCV 85.8, MCH 28.9, RDW 14.9 H, MPV 10.7 H, Gran % 90.0 H, Lymphocytes % 4.5 L, Monocytes % 5.5, Eosinophils % 0, Basophils % 0, Absolute Granulocytes 17.4 H, Absolute Lymphocytes 0.9 L, Absolute Monocytes 1.1 H, Absolute Eosinophils 0, Absolute Basophils 0, PUBS MCHC 33.7 Microbiology 08/16 0900 URINE ROUT: Urine Culture - RES Assessment/Plan Plan: agree w above Cipro x1week as outpt cont eliquis wbat await bm., then transfer to [facility] dw attending
[2017-08-17 11:52] VITALS: BP 114/70
== END 2017-08-17 14:21 | DRG 470 ==
LOC: SDA 02:25 → ENRESERV 09:44 → ENTRNSPT 10:20 → EDTRNSPTSTS 10:47 → EDTRNSPT 10:47 → 2NA 10:56 → CMPTRNSPT 11:07 → ENPENDDIS 08-17 11:27 → ENTRNSPT 08-17 13:24 → EDTRNSPT 08-17 14:10 → EDTRNSPTSTS 08-17 14:10 → 2NA 08-17 14:21 → CMPTRNSPT 08-17 14:35
PROVIDERS: Physician Assistant Surgical
PROC: 0SRC069 Replacement of Right Knee Joint with Oxidized Zirconium on Polyethylene Synthetic Substitute, Cemented, Open Approach (ICD-10-PCS; principal; 2017-08-14)
PROC: 3E0T3BZ Introduction of Anesthetic Agent into Peripheral Nerves and Plexi, Percutaneous Approach (ICD-10-PCS; 2017-08-14)
DX: M17.11 Unilateral primary osteoarthritis, right knee (principal); E06.3 Autoimmune thyroiditis; I10 Essential (primary) hypertension; E66.9 Obesity, unspecified; Z68.37 Body mass index [BMI] 37.0-37.9, adult
CPT/HCPCS: 2NAP; 36415; 71045; 73560-RT; 81001; 82436; 87086; 88305; 97110-GO; 97116-GO; 97161-GP; 97530-GO; C1713; J0131; J1100; J1200; J1885; J2405; J2550; J2765; J2795; J3370; J3490; J7040